=== PATIENT | female | born 2000 | race Caucasian/White ===

== ENCOUNTER 2022-08-10 16:22 | Emergency (ER) | payer MEDICAID, OTHER ==
[~2022-08-10] VITALS: Ht 152.4 cm; Wt 81.6 kg
[2022-08-10 16:24] VITALS: BP 130/72
--- NOTE | 2022-08-10 16:26 | NUR ---
PT ERIK, TAKEN TO LOBBY.
[2022-08-10 17:19] LABS: BASOPHILS % (AUTO) 0.1 % (0.0-2.0); EOSINOPHILS # (AUTO) 0.1 K/uL (0-0.4); EOSINOPHILS % (AUTO) 0.7 % (0.0-4.0); HEMATOCRIT 33.6 % (36-48); HEMOGLOBIN 10.8 g/dL (12.0-16.0); LYMPHOCYTES # (AUTO) 1.9 K/uL (2.5-16.5); LYMPHOCYTES % (AUTO) 22.1 % (20.5-51.1); MEAN CORPUSCULAR HEMOGLOBIN 25 pg (27-31); MEAN CORPUSCULAR HGB CONC 32 g/dL (33-37); MEAN CORPUSCULAR VOLUME 77.1 fL (80-94); MONOCYTES # (AUTO) 0.4 K/uL (0.8-1.0); MONOCYTES % (AUTO) 4.7 % (1.7-9.3); NEUTROPHILS # (AUTO) 6.3 K/uL (1.8-7.7); NEUTROPHILS % (AUTO) 72.4 % (42.2-75.2); PLATELET COUNT (AUTO) 327 K/uL (140-450); RED BLOOD CELL COUNT(AUTO) 4.36 MIL/uL (4.20-5.40); RED CELL DISTRIBUTION WIDTH 16.7 % (11.6-13.7); WHITE BLOOD COUNT (AUTO) 8.8 K/uL (4.8-10.8)
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
[2022-08-10 17:43] LABS: ALBUMIN 3.4 g/dL (3.4-5.0); ANION GAP 17.1 (8-16); CARBON DIOXIDE 24.9 mmol/L (21-32); CREATININE 0.6 mg/dL (0.6-1.3); TOTAL BILIRUBIN 0.2 mg/dL (0.0-1.0)
[2022-08-10] MEDS ORDERED: HYDROcodone/APAP 5/325 MG 1 TAB TAB PO ONE (18:40)
[2022-08-10] MEDS ORDERED: CYCL-711 PO (19:03)
[2022-08-10] MEDS ORDERED: IBUP-2213 PO (19:03)
[2022-08-10] MEDS ORDERED: LID5T TP (19:03)
[2022-08-10 19:25] VITALS: BP 130/72
--- NOTE | 2022-08-10 19:27 | NUR ---
Patient discharged with v/s stable. Written and verbal after care instructions given and explained. Patient alert, oriented and verbalized understanding of instructions. Ambulatory with steady gait. All questions addressed prior to discharge. ID band removed. Patient advised to follow up with PMD. Rx of ibuprofen, cyclobenzaprine, lidocaine (sent) given. Patient educated on indication of medication including possible reaction and side effects. Opportunity to ask questions provided and answered.
== END 2022-08-10 19:10 | disposition home or self-care (01) ==
LOC: MED 16:22
DX: S43.402A Unspecified sprain of left shoulder joint, initial encounter (principal); S30.1XXA Contusion of abdominal wall, initial encounter; D64.9 Anemia, unspecified; M54.2 Cervicalgia; M54.6 Pain in thoracic spine; Z79.899 Other long term (current) drug therapy; V89.2XXA Person injured in unspecified motor-vehicle accident, traffic, initial encounter; Y93.89 Activity, other specified; Y92.89 Other specified places as the place of occurrence of the external cause; Y99.8 Other external cause status
CPT/HCPCS: 36415; 73030; 74177; 80053; 81002; 81025; 83690; 85025; 99285; Q9967

== ENCOUNTER 2023-04-09 09:35 | Emergency (ER) | payer OTHER ==
[~2023-04-09] VITALS: Ht 154.9 cm; Wt 81.6 kg
[~2023-04-09 09:35] MED LIST: CYCL-711 PO; DIPH25TA53 PO; IBUP-2213 PO; LID5T TP; PRED20TA5 PO
[2023-04-09 09:36] VITALS: BP 114/77
--- NOTE | 2023-04-09 09:41 | NUR ---
pt ambulatory tp bed 12
--- NOTE | 2023-04-09 10:10 | NUR ---
ASSUMED CARE PT C/O POSS ALLERGIC REACTION, ITERMITTENT LOCALIZED RASH TO HER BACK AND BOTH THIGH, NO SOB, NO STRIDOR
--- NOTE | 2023-04-09 10:25 | NUR ---
The patient's care was reviewed and supervised by SHIRA SILVA RN.
--- NOTE | 2023-04-09 10:26 | NUR ---
23YO F PRESENTS WITH RASH ON LEGS, BACK, AND ARMS X 1 DAY, PT DENIES ANY NEW FOODS, PETS, DETERGENT, MEDICATIONS, FEVER, CHILLS, FLU SYMPTOMS. NKA
[2023-04-09] MEDS ORDERED: CETI10SG1 PO (11:13)
[2023-04-09] MEDS ORDERED: FAMO-92 PO (11:13)
[2023-04-09 11:32] VITALS: BP 110/74
--- NOTE | 2023-04-09 11:34 | NUR ---
Patient discharged with v/s stable. Written and verbal after care instructions given and explained. Patient alert, oriented and verbalized understanding of instructions. Ambulatory with steady gait. All questions addressed prior to discharge. ID band removed. Patient advised to follow up with PMD. Rx CETIRIZINE HCI, FAMOTIDINE of given. Opportunity to ask questions provided and answered.
== END 2023-04-09 11:32 | disposition home or self-care (01) ==
LOC: MED 09:35
DX: L50.9 Urticaria, unspecified (principal); Z90.49 Acquired absence of other specified parts of digestive tract; Z98.890 Other specified postprocedural states; Z79.899 Other long term (current) drug therapy; Z79.1 Long term (current) use of non-steroidal anti-inflammatories (NSAID)
CPT/HCPCS: 99282

== ENCOUNTER 2023-06-18 15:24 | Emergency (ER) | payer OTHER ==
[~2023-06-18] VITALS: Ht 154.9 cm; Wt 86.2 kg
[~2023-06-18 15:24] MED LIST changes: +CETI10SG1 PO; +FAMO-92 PO
[2023-06-18 15:34] VITALS: BP 104/70; PULSE 123; RESP 20; TEMP 98; O2SAT 99
--- NOTE | 2023-06-18 15:43 | NUR ---
TO ER BED 12
[2023-06-18 17:43] LABS: ALBUMIN 2.9 g/dL (3.4-5.0); ANION GAP 18.6 (8-16); CARBON DIOXIDE 22.4 mmol/L (21-32); TOTAL BILIRUBIN 0.6 mg/dL (0.0-1.0)
[2023-06-18 18:04] LABS: BASOPHILS # (AUTO) 0.1 K/uL (0.00-0.22); BASOPHILS % (AUTO) 0.4 % (0.0-2.0); EOSINOPHILS # (AUTO) 0.1 K/uL (0-0.4); EOSINOPHILS % (AUTO) 0.5 % (0.0-4.0); HEMATOCRIT 30.8 % (36-48); HEMOGLOBIN 9.9 g/dL (12.0-16.0); LYMPHOCYTES # (AUTO) 1.7 K/uL (2.5-16.5); LYMPHOCYTES % (AUTO) 11.2 % (20.5-51.1); MEAN CORPUSCULAR HEMOGLOBIN 24 pg (27-31); MEAN CORPUSCULAR HGB CONC 32 g/dL (33-37); MONOCYTES # (AUTO) 2.7 K/uL (0.8-1.0); MONOCYTES % (AUTO) 18.2 % (1.7-9.3); NEUTROPHILS # (AUTO) 10.4 K/uL (1.8-7.7); NEUTROPHILS % (AUTO) 69.7 % (42.2-75.2); PLATELET COUNT (AUTO) 180 K/uL (140-450); RED BLOOD CELL COUNT(AUTO) 4.22 MIL/uL (4.20-5.40); RED CELL DISTRIBUTION WIDTH 19.2 % (11.6-13.7); WHITE BLOOD COUNT (AUTO) 14.9 K/uL (4.8-10.8)
[2023-06-18] MEDS ORDERED: POTASSIUM CHLORIDE 10 MEQ TABER PO ONE (19:20)
--- NOTE | 2023-06-18 19:45 | NUR ---
PT CALLED BACKTO COLLECT SWABS AND MEDICATE. NO ANSWER IN LOBBY OR OUTSIDE.
--- NOTE | 2023-06-18 19:52 | NUR ---
PT CALLED BACK TO COLLECT SWABS AND MEDICATE. NO ANSWER IN LOBBY OR OUTSIDE.
[2023-06-18 20:22] VITALS: BP 104/70; PULSE 123; RESP 20; TEMP 98; O2SAT 99
--- NOTE | 2023-06-18 20:22 | NUR ---
PATIENT ELOPED FROM FACILITY. DISCHARGE INSTRUCTIONS NOT GIVEN TO PATIENT. DR. CRUZ NOTIFIED.
[2023-06-19 12:07] LABS: HEPATITIS A ANTIBODY IGM Negative (Negative); HEPATITIS B SURFACE ANTIBODY Reactive (.)
[2023-06-20 06:09] LABS: HEPATITIS C AB Non Reactive (Non Reactive)
== END 2023-06-18 20:22 | disposition left against medical advice (07) ==
LOC: MED 15:24
DX: R10.10 Upper abdominal pain, unspecified (principal); R11.2 Nausea with vomiting, unspecified; R19.7 Diarrhea, unspecified; R21 Rash and other nonspecific skin eruption; E87.6 Hypokalemia; J45.909 Unspecified asthma, uncomplicated; Z79.899 Other long term (current) drug therapy; Z90.49 Acquired absence of other specified parts of digestive tract
CPT/HCPCS: 36415; 80053; 81002; 81025; 83690; 85025; 86308; 86704; 86706; 86709; 86804; 87522; 99283